=== PATIENT | female | born 1985 | race Caucasian/White ===

== ENCOUNTER 2017-01-02 09:19 | Outpatient (CLI) | payer OTHER ==
[2017-01-02 09:49] LABS: BASOPHILS # (AUTO) 0.3 K/uL (0.00-0.22); BASOPHILS % (AUTO) 4.4 % (0.0-2.0); EOSINOPHILS # (AUTO) 0.1 K/uL (0-0.4); EOSINOPHILS % (AUTO) 1.8 % (0.0-4.0); HEMATOCRIT 38.1 % (36-48); HEMOGLOBIN 12.4 g/dL (12.0-16.0); LYMPHOCYTES # (AUTO) 2.6 K/uL (2.5-16.5); LYMPHOCYTES % (AUTO) 41.5 % (20.5-51.1); MEAN CORPUSCULAR HEMOGLOBIN 27 pg (27-31); MEAN CORPUSCULAR HGB CONC 33 g/dL (33-37); MEAN CORPUSCULAR VOLUME 84 fL (80-94); MONOCYTES # (AUTO) 0.4 K/uL (0.8-1.0); MONOCYTES % (AUTO) 6.1 % (1.7-9.3); NEUTROPHILS # (AUTO) 2.9 K/uL (1.8-7.7); NEUTROPHILS % (AUTO) 46.2 % (42.2-75.2); PLATELET COUNT (AUTO) 309 K/uL (140-450); RED BLOOD CELL COUNT(AUTO) 4.54 MIL/uL (4.20-5.40); RED CELL DISTRIBUTION WIDTH 12.8 % (11.6-13.7); WHITE BLOOD COUNT (AUTO) 6.3 K/uL (4.8-10.8)
[2017-01-02 10:53] LABS: ALBUMIN 3.9 g/dL (3.4-5.0); ANION GAP 13.9 (8-16); CALCIUM 9.1 mg/dL (8.5-10.1); CARBON DIOXIDE 27.5 mmol/L (21-32); CHOL/HDL RATIO 3.9 (1-4.5); CREATININE 0.7 mg/dL (0.6-1.3); POTASSIUM 4.4 mmol/L (3.5-5.1); THYROID STIMULATING HORMONE 0.9 uIU/mL (0.34-3.76); TOTAL BILIRUBIN 0.3 mg/dL (0.0-1.0); TOTAL PROTEIN, SERUM 7.7 g/dL (6.4-8.2)
[2017-01-04 16:11] LABS: HEMOGLOBIN A1C 5.4 % (4.8-5.6)
[2017-01-04 21:34] LABS: DEHYDROEPIANDROSTERONE SULFATE 168.2 ng/dL (148.0-407.0); FOLLICLE STIMULATING HORMONE 5.4 mIU/mL (3.5 - 12.5); LUTEINIZING HORMONE 11.1 mIU/mL (2.4 - 12.6); PROLACTIN 8.8 ng/mL (4.8-23.3); T4 (THYROXINE) 10.4 ug/dL (4.5 - 12.0)
== END 2017-01-02 19:06 | disposition home or self-care (01) ==
LOC: MLB 09:19
DX: Z01.411 Encounter for gynecological examination (general) (routine) with abnormal findings (principal); E03.9 Hypothyroidism, unspecified; N92.6 Irregular menstruation, unspecified
CPT/HCPCS: 36415; 80053; 83001; 83002; 83036; 83525; 84146; 84403; 84436; 84443; 85025

== ENCOUNTER 2018-10-15 15:50 | Emergency (ER) | payer OTHER ==
[~2018-10-15] VITALS: Ht 162.6 cm; Wt 84.8 kg
[2018-10-15 16:04] VITALS: BP 140/81
--- NOTE | 2018-10-15 16:04 | NUR ---
PT TRIAGED AND AMBULATED TO ER LOBBY
--- NOTE | 2018-10-15 17:00 | NUR ---
PT TO US WITH TECH
--- NOTE | 2018-10-15 17:00 | NUR ---
NO CHANGE IN PATIENT CONDITION AT THIS TIME.
--- NOTE | 2018-10-15 17:24 | NUR ---
PT RETURN FROM US
--- NOTE | 2018-10-15 18:09 | NUR ---
PATIENT AMBULATED TO BED #12
--- NOTE | 2018-10-15 18:15 | NUR ---
Came in because she went to have a gender scan done for 13 week gestation, and was told there is not a heartbeat. Denies abdominal pain, vaginal bleeding. VSS; PATIENT POSITIONED FOR COMFORT; HOB ELEVATED; BEDRAILS UP X1; BED DOWN. ER MD MADE AWARE OF PT STATUS.
[2018-10-15 18:54] LABS: BASOPHILS % (AUTO) 0.2 % (0.0-2.0); EOSINOPHILS # (AUTO) 0.1 K/uL (0-0.4); EOSINOPHILS % (AUTO) 1.2 % (0.0-4.0); HEMATOCRIT 37.5 % (36-48); HEMOGLOBIN 12.5 g/dL (12.0-16.0); LYMPHOCYTES # (AUTO) 2.2 K/uL (2.5-16.5); LYMPHOCYTES % (AUTO) 25.4 % (20.5-51.1); MEAN CORPUSCULAR HEMOGLOBIN 28 pg (27-31); MEAN CORPUSCULAR HGB CONC 33 g/dL (33-37); MONOCYTES # (AUTO) 0.5 K/uL (0.8-1.0); MONOCYTES % (AUTO) 6.3 % (1.7-9.3); NEUTROPHILS # (AUTO) 5.8 K/uL (1.8-7.7); NEUTROPHILS % (AUTO) 66.9 % (42.2-75.2); PLATELET COUNT (AUTO) 305 K/uL (140-450); RED BLOOD CELL COUNT(AUTO) 4.47 MIL/uL (4.20-5.40); RED CELL DISTRIBUTION WIDTH 13.4 % (11.6-13.7); WHITE BLOOD COUNT (AUTO) 8.6 K/uL (4.8-10.8)
[2018-10-15 19:00] VITALS: BP 140/81
--- NOTE | 2018-10-15 19:07 | NUR ---
Patient discharged with v/s stable. Written and verbal after care instructions given and explained. Patient verbalized understanding. Ambulatory with steady gait. All questions addressed prior to discharge. Advised to follow up with PMD.
[2018-10-15 19:37] LABS: APPEARANCE,URINE CLEAR (CLEAR); BILIRUBIN,URINE NEGATIVE (NEGATIVE); BLOOD, URINE NEGATIVE (NEGATIVE); COLOR,URINE YELLOW (YELLOW); LEUKOCYTE ESTERASE ,URINE NEGATIVE (NEGATIVE); NITRITE, URINE NEGATIVE (NEGATIVE); UGLUCOSE NEGATIVE (NEGATIVE)
[2018-10-15 19:54] LABS: FREE T4 (FREE THYROXINE) 1.07 ng/dL (0.76-1.46); THYROID STIMULATING HORMONE 0.97 uIU/mL (0.34-3.74)
== END 2018-10-15 19:07 | disposition home or self-care (01) ==
LOC: MED 15:50
DX: O02.1 Missed abortion (principal); O99.281 Endocrine, nutritional and metabolic diseases complicating pregnancy, first trimester; E03.9 Hypothyroidism, unspecified; Z3A.12 12 weeks gestation of pregnancy
CPT/HCPCS: 36415; 76817; 81003; 84439; 84443; 84479; 84702; 85025; 86900; 86901; 99284; Q0092

== ENCOUNTER 2019-03-09 15:53 | Outpatient (CLI) | payer OTHER | END 2019-03-09 21:03 | disposition home or self-care (01) | LOC: MLB 15:53 | DX: N92.6 Irregular menstruation, unspecified (principal) | CPT/HCPCS: 36415; 84144; 84702 ==

== ENCOUNTER 2022-05-21 13:02 | Emergency (ER) | payer OTHER ==
[~2022-05-21] VITALS: Ht 162.6 cm; Wt 83.5 kg
[2022-05-21 13:32] VITALS: BP 110/72
--- NOTE | 2022-05-21 14:00 | NUR ---
BIB SELF C/O COUGH,5/10 SORE THROAT X YESTERDAY. PMH: THYROID
--- NOTE | 2022-05-21 14:39 | NUR ---
Patient being evaluated by FAITH ROBBINS at [facility].
[2022-05-21] MEDS ORDERED: BENZ-300 PO (15:07)
--- NOTE | 2022-05-21 17:06 | NUR ---
PATIENT ELOPED FROM FACILITY. DISCHARGE INSTRUCTIONS NOT GIVEN TO PATIENT. DR. ROBBINS NOTIFIED.
== END 2022-05-21 17:00 | disposition left against medical advice (07) ==
LOC: MED 13:02
DX: J02.9 Acute pharyngitis, unspecified (principal); R05.9 Cough, unspecified; E07.9 Disorder of thyroid, unspecified; Z79.899 Other long term (current) drug therapy
CPT/HCPCS: 99282; 99283

== ENCOUNTER 2023-01-28 10:59 | Outpatient (CLI) | payer OTHER ==
[~2023-01-28 10:59] MED LIST: BENZ-300 PO
== END 2023-01-28 20:37 | disposition home or self-care (01) ==
LOC: MLB 10:59
PROVIDERS: ATTEND Specialist
DX: N92.6 Irregular menstruation, unspecified (principal)
CPT/HCPCS: 36415; 84144; 84702

== ENCOUNTER 2023-02-23 11:59 | Outpatient (CLI) | payer OTHER | END 2023-02-23 19:37 | disposition home or self-care (01) | LOC: MLB 11:59 | PROVIDERS: ATTEND Specialist | DX: O03.4 Incomplete spontaneous abortion without complication (principal) | CPT/HCPCS: 36415; 84702 ==

== ENCOUNTER 2023-11-08 08:08 | Outpatient (CLI) | payer OTHER ==
[2023-11-08 09:23] LABS: BASOPHILS % (AUTO) 0.7 % (0.0-2.0); EOSINOPHILS # (AUTO) 0.2 K/uL (0-0.4); EOSINOPHILS % (AUTO) 2.6 % (0.0-4.0); HEMATOCRIT 37.7 % (36-48); HEMOGLOBIN 12.8 g/dL (12.0-16.0); LYMPHOCYTES # (AUTO) 2.2 K/uL (2.5-16.5); LYMPHOCYTES % (AUTO) 34.8 % (20.5-51.1); MEAN CORPUSCULAR HEMOGLOBIN 28 pg (27-31); MEAN CORPUSCULAR HGB CONC 34 g/dL (33-37); MEAN CORPUSCULAR VOLUME 82.6 fL (80-94); MONOCYTES # (AUTO) 0.4 K/uL (0.8-1.0); NEUTROPHILS # (AUTO) 3.4 K/uL (1.8-7.7); NEUTROPHILS % (AUTO) 54.9 % (42.2-75.2); PLATELET COUNT (AUTO) 283 K/uL (140-450); RED BLOOD CELL COUNT(AUTO) 4.56 MIL/uL (4.20-5.40); RED CELL DISTRIBUTION WIDTH 13.9 % (11.6-13.7); WHITE BLOOD COUNT (AUTO) 6.2 K/uL (4.8-10.8)
[2023-11-08 09:53] LABS: ALBUMIN 3.9 g/dL (3.4-5.0); ANION GAP 12.2 (8-16); CARBON DIOXIDE 29.1 mmol/L (21-32); CHOL/HDL RATIO 2.9 (1-4.5); CREATININE 0.6 mg/dL (0.6-1.3); POTASSIUM 4.3 mmol/L (3.5-5.1); THYROID STIMULATING HORMONE 3.57 uIU/mL (0.34-3.74); TOTAL BILIRUBIN 0.4 mg/dL (0.0-1.0); TOTAL PROTEIN, SERUM 7.5 g/dL (6.4-8.2)
[2023-11-09 12:08] LABS: T4 FREE (DIRECT) 1.31 ng/dL (0.82-1.77)
== END 2023-11-08 18:00 | disposition home or self-care (01) ==
LOC: MLB 08:08
PROVIDERS: ATTEND Emergency Medicine
DX: Z01.419 Encounter for gynecological examination (general) (routine) without abnormal findings (principal); E03.9 Hypothyroidism, unspecified
CPT/HCPCS: 36415; 80053; 84439; 84443; 84479; 85025